=== PATIENT | female | born 1985 | race Two or more races ===

== ENCOUNTER → 2018-01-27 12:09 | Outpatient (CLI) | payer BC, SELFPAY ==
[2018-01-27 12:28] LABS: Basophils % 0.2 % (0.1-2.0); Eosinophils # 0.1 K/mm3 (0.0-0.4); Eosinophils % 0.9 % (0.1-12.0); Hematocrit 35.8 % (37.0-47.0); Hemoglobin 11.1 g/dL (12.2-16.2); Lymphocytes # 1.7 K/mm3 (0.7-4.5); Lymphocytes % 21.8 K/mm3 (10-50); Mean Corpuscular HGB Conc 31.1 g/dL (31.8-35.4); Mean Corpuscular Hemoglobin 26.1 pg (27.0-31.2); Mean Corpuscular Volume 83.8 fl (81-99); Mean Platelet Volume 8.2 fl (7.4-10.4); Monocytes # 0.4 K/mm3 (0.1-1.0); Neutrophils # 5.6 K/mm3 (1.8-7.8); Platelet Count 265 K/mm3 (142-424); Red Blood Count 4.27 M/mm3 (4.20-5.40); Red Cell Distribution Width 15.6 % (11.5-17.5); White Blood Count 7.8 K/mm3 (4.8-10.8)
[2018-01-28 05:14] LABS: HIV Screen 4th Generation wRfx Non Reactive (Non Reactive)
[2018-01-28 16:35] LABS: Hepatitis B Surface Antigen Negative (Negative); Hepatitis C Antibody 0.1 s/co ratio (0.0-0.9); Rapid Plasma Reagin Ab Titer Non Reactive (NonRea<1:1); Rubella Antibodies, IgG 9.19 index (Immune >0.99)
== END ==
PROVIDERS: PCP Nurse Practitioner Obstetrics & Gynecology; Visit Provider Obstetrics & Gynecology
DX: Z34.90 Encounter for supervision of normal pregnancy, unspecified, unspecified trimester (principal)
CPT/HCPCS: 36415; 85025; 86592; 86703; 86762; 86850; 87340; 87380; G0432

== ENCOUNTER → 2018-02-05 10:39 | Outpatient (CLI) | payer BC, SELFPAY ==
--- NOTE | 2018-02-05 10:44 | US_ITS ---
US OB transvaginal HISTORY: ITS.REASON: US OB TV for DATES ORDERING PHYSICIAN: Tequila Wallace MD PATIENT AGE: 32 years COMPARISON: FINDINGS: An intrauterine gestational sac is present with a pole with a crown-rump length of 03.32 cm correlating to gestational age of 10W2D. heart tones are present with an FHR of 164 bpm's. Yolk sac is noted. The amnion and chorion have not yet fused. Adnexa: 1.3 cm right ovarian cyst. IMPRESSION: Live intrauterine gestation at 10 weeks to days as described above. Estimated due date by ultrasound of 09/01/2018
== END ==
PROVIDERS: Visit Provider Obstetrics & Gynecology
DX: O26.841 Uterine size-date discrepancy, first trimester (principal)
CPT/HCPCS: 76830

== ENCOUNTER → 2018-04-13 13:53 | Outpatient (CLI) | payer OTHER, SELFPAY ==
--- NOTE | 2018-04-13 13:54 | US_ITS ---
US OB /maternal detail: INDICATION: ITS.REASON: US OB Complete ORDERING PHYSICIAN: Robe Moore MD PATIENT AGE: 32 years TECHNIQUE: ultrasound transabdominal scanning. COMPARISON: No previous relevant studies. FINDINGS: Single viable intrauterine gestation. Breech position. Placenta: Anterior placenta grade 1. There is average amount fluid. The cervix appears satisfactory. Closed and measuring 3 cm in length. Complete survey performed and was unremarkable on the submitted images as in PACS. No discrete anomalies identified on survey imaging by technologist. Active fetus. Three-vessel cord with satisfactory umbilical cord insertion. 4- chamber heart noted. Survey of brain & ventricles unremarkable. Face and neck survey unremarkable. Diaphragm and chest views unremarkable. Abdomen: Both kidneys noted and unremarkable. Stomach noted and satisfactory. Spine: Survey of the spine satisfactory with no anomalies identified nor imaged. Both arms and legs noted. Amniotic Fluid: Adequate. Maternal adnexa: No significant findings. Measurements: Average ultrasound age 19w5d. Gestational Age 19w6d. Estimated due date by ultrasound age 1109-02-2018. Estimated weight 321 grams. This is 49 percentile based on established due date BPD = 19w2d OFD = 20w3d HC = 19w2d AC = 20w1d FL = 20w0d Heart Rate = 143 bpm Cerebellum = 19w4d Humerus = 20w3d HC/AC is 1.12 (1.09-1.26). CI is 73% (70-86%). FL/BPD is 73%. FL/AC is 22%. IMPRESSION: Single live fetus in breech presentation with average ultrasound age of 19 weeks 5 days. The fetus is active with no obvious anomalies. Please see above for detail
== END ==
PROVIDERS: PCP Obstetrics & Gynecology; Visit Provider Nurse Practitioner Obstetrics & Gynecology
DX: Z36.0 Encounter for antenatal screening for chromosomal anomalies (principal)
CPT/HCPCS: 76805; 76811

== ENCOUNTER → 2018-07-30 15:17 | Outpatient (REF) | payer OTHER, SELFPAY | LOC: LAB 15:17 | PROVIDERS: Visit Provider Nurse Practitioner Obstetrics & Gynecology | DX: Z34.90 Encounter for supervision of normal pregnancy, unspecified, unspecified trimester (principal) | CPT/HCPCS: 86403 ==

== ENCOUNTER 2018-08-17 19:58 | Inpatient (IN) ==
[2018-08-17 21:59] LABS: Basophils % 0.4 % (0.1-2.0); Eosinophils # 0.1 K/mm3 (0.0-0.4); Eosinophils % 0.7 % (0.1-12.0); Hematocrit 29.8 % (37.0-47.0); Hemoglobin 9.3 g/dL (12.2-16.2); Lymphocytes # 1.4 K/mm3 (0.7-4.5); Lymphocytes % 18.6 K/mm3 (10-50); Mean Corpuscular HGB Conc 31.3 g/dL (31.8-35.4); Mean Corpuscular Hemoglobin 22.5 pg (27.0-31.2); Mean Corpuscular Volume 71.8 fl (81-99); Monocytes # 0.3 K/mm3 (0.1-1.0); Monocytes % 4.2 % (1.7-9.3); Neutrophils # 5.8 K/mm3 (1.8-7.8); Neutrophils % 76.1 % (37.0-80.0); Platelet Count 304 K/mm3 (142-424); Red Blood Count 4.15 M/mm3 (4.20-5.40); Red Cell Distribution Width 16.1 % (11.5-17.5); White Blood Count 7.6 K/mm3 (4.8-10.8)
[2018-08-17 22:21] LABS: Anion Gap 13.7 mEq/L (5-15); Calcium 8.4 mg/dL (8.5-10.1); Potassium 3.7 mmoL/L (3.5-5.1)
[2018-08-17 22:40] LABS: Microscopic, Urine URINE MICROSCOPIC (MICROSCOPIC)
[2018-08-17 22:41] LABS: Appearance,Urine CLEAR (Clear); Bilirubin,Urine Negative (Negative); Blood, Urine Negative (Negative); Color,Urine YELLOW (Yellow); Glucose,Urine (UA) Negative (Negative); Ketones,Urine 2+ (Negative); Leukocyte Esterase,Urine Negative (Negative); PH,Urine 6.5 (5.0-8.5); Protein,Urine Negative (Negative); Urobilinogen,Urine 0.2 EU/dl (0.2)
[2018-08-17 22:48] LABS: Bacteria,Urine 1+ /lpf; Mucus,Urine 1+ /lpf
--- NOTE | 2018-08-18 08:06 | Progress Note ---
Internal Medicine - PN: Subj *Date: 08/18/18 *Time: 08:03 Interval history: This 33-year old 4, para 3, Ab0 female admitted last evening with severe right upper quadrant pain at 38 weeks of gestation. She had been diagnosed with gallstone pancreatitis, and had been hospitalized at (recently released). He has been followed for her OB care by Dr. Wallace, who planned to induce her 2 days hence. She was having irregular contractions, and her cervix was 3 cm dilated (unchanged from previous exam). The baby looked good on the external monitor. Lab work included elevated amylase and lipase, but was otherwise normal. She was treated with intravenous Dilaudid, which relieved her pain. She began to have a run of contractions, which dissipated after a subcu dose of Brethine. At this time she remains stable. Dr. Wallace will assume care this morning. Exam Vital signs and Labs for Last 24 Hours: Temp Pulse Resp BP Pulse Ox 98.6 F 92 H 18 102/68 L 100 08/17/18 20:29 08/17/18 20:29 08/17/18 20:29 08/17/18 20:29 08/17/18 20:29 Laboratory Results - last 24 hr 08/17/18 20:10: Urine Color Yellow, Urine Appearance Clear, Urine pH 6.5, Ur Specific [place] 1.020, Urine Protein Negative, Urine Glucose (UA) Negative, Urine Ketones 2+, Urine Blood Negative, Urine Nitrate Negative, Urine Bilirubin Negative, Urine Urobilinogen 0.2, Ur Leukocyte Esterase Negative, Urine WBC 3-5, Ur Squamous Epith Cells 10-20, Urine Bacteria 1+, Urine Mucus 1+ 08/17/18 21:15: WBC 7.6, RBC 4.15 L, Hgb 9.3 L, Hct 29.8 L, MCV 71.8 L, MCH 22.5 L, MCHC 31.3 L, RDW 16.1, Plt Count 304, MPV 8.0, Neut % (Auto) 76.1, Lymph % (Auto) 18.6, [place] % (Auto) 4.2, Eos % (Auto) 0.7, Baso % (Auto) 0.4, Neut # (Auto) 5.8, Lymph # (Auto) 1.4, [place] # (Auto) 0.3, Eos # (Auto) 0.1, Baso # (Auto) 0.0 08/17/18 21:15: Sodium 136, Potassium 3.7, Chloride 105, Carbon Dioxide 21, Anion Gap 13.7, BUN 8, Creatinine 0.43 L, Estimated Creat Clear 246, Estimated GFR 171, Est GFR ( Amer) 207, Glucose 80, Calcium 8.4 L, Amylase 1554 H* 08/17/18 21:15: Lipase 6483 H I & O for Last 24 hours: Intake & Output 08/15/18 08/16/18 08/17/18 08/18/18 11:59 11:59 11:59 11:59 Weight 181 lb
--- NOTE | 2018-08-18 15:07 | Consult Report ---
*Admission Date: 08/17/18 *Chief complaint: ABDOMINAL PAIN *History of present illness: Patient is a very pleasant 4 para 33-year-old female, 38 weeks with intrauterine apparently she had had some issues with pancreatitis about 3 weeks ago and was hospitalized at [facility]. Reportedly this was felt to be biliary pancreatitis. The exact details of this were unknown. She did have some recurrent progressive right upper quadrant and epigastric pain. She was admitted yesterday evening. She underwent amylase and lipase which revealed appreciable elevation. Surgical consultation was obtained. Patient states that her pain has improved somewhat. She denies any nausea or vomiting. Review of Systems - Constitutional Denies anorexia - Eyes Denies loss of vision - ENT Denies abnormal hearing - *Cardiovascular Denies chest pain - *Respiratory Denies shortness of breath - *Gastrointestinal Reports abdominal pain - *Musculoskeletal Denies abnormal walking - *Neurologic Denies dizziness [facility] History Medical History: Denies:: Anxiety, Depression, Diabetes Mellitus Type 1, Hyperlipidemia, Hypertension, Migraine, MRSA Other Surgeries: No: Amputation: No Fractures: No - *Social History Smoking Status: Never smoker Alcohol Intake: never Substance Use Type: denies use - Psychiatric History Pschychiatric History:: Denies:: Anxiety, Depression *Family Hx:: Diabetes, Hypertension, Hyperlipidemia Para: 3 Meds Home Medications Medication Instructions Recorded Confirmed Type pediatric multivitamin no.49 2 tab PO .2 tablets at once tab 03/16/18 08/17/18 History chewable tablet famotidine 20 mg tablet 20 mg PO DAILY 07/30/18 08/17/18 History Omeprazole Magnesium [Prilosec Otc 20 mg PO DAILY 08/18/18 08/18/18 History 20mg Tab] Allergies Allergy/AdvReac Type Severity Reaction Status Date / Time No Known Allergies Allergy Verified 08/13/18 09:25 Exam Vital signs and Labs for Last 24 Hours: Temp Pulse Resp BP Pulse Ox 98.6 F 92 H 18 102/68 L 100 08/17/18 20:29 08/17/18 20:29 08/17/18 20:29 08/17/18 20:29 08/17/18 20:29 Laboratory Results - last 24 hr 08/17/18 20:10: Urine Color Yellow, Urine Appearance Clear, Urine pH 6.5, Ur Specific [place] 1.020, Urine Protein Negative, Urine Glucose (UA) Negative, Urine Ketones 2+, Urine Blood Negative, Urine Nitrate Negative, Urine Bilirubin Negative, Urine Urobilinogen 0.2, Ur Leukocyte Esterase Negative, Urine WBC 3-5, Ur Squamous Epith Cells 10-20, Urine Bacteria 1+, Urine Mucus 1+ 08/17/18 21:15: WBC 7.6, RBC 4.15 L, Hgb 9.3 L, Hct 29.8 L, MCV 71.8 L, MCH 22.5 L, MCHC 31.3 L, RDW 16.1, Plt Count 304, MPV 8.0, Neut % (Auto) 76.1, Lymph % (Auto) 18.6, [place] % (Auto) 4.2, Eos % (Auto) 0.7, Baso % (Auto) 0.4, Neut # (Auto) 5.8, Lymph # (Auto) 1.4, [place] # (Auto) 0.3, Eos # (Auto) 0.1, Baso # (Auto) 0.0 08/17/18 21:15: Sodium 136, Potassium 3.7, Chloride 105, Carbon Dioxide 21, Anion Gap 13.7, BUN 8, Creatinine 0.43 L, Estimated Creat Clear 246, Estimated GFR 171, Est GFR ( Amer) 207, Glucose 80, Calcium 8.4 L, Amylase 1554 H* 08/17/18 21:15: Lipase 6483 H I & O for Last 24 hours: Intake & Output 08/16/18 08/17/18 08/18/18 08/19/18 11:59 11:59 11:59 11:59 Weight 181 lb - Constitutional no acute distress - *Routine HEENT Exam Head: Present: normocephalic - *Routine Respiratory Exam Present: CTA bilaterally - *Routine Cardiovascular Exam Present: RRR - *Routine Abdominal Exam Present: soft Comments: Gravid. Soft. No guarding or rebound. Results - Labs 08/17/18 21:15 08/17/18 21:15 Laboratory Results - last 24 hr 08/17/18 20:10: Urine Color Yellow, Urine Appearance Clear, Urine pH 6.5, Ur Specific [place] 1.020, Urine Protein Negative, Urine Glucose (UA) Negative, Urine Ketones 2+, Urine Blood Negative, Urine Nitrate Negative, Urine Bilirubin Negative, Urine Urobilinogen 0.2, Ur Leukocyte Esterase Negative, Urine WBC 3-5, Ur Squamous Epith Cells 10-20, Urine Bacteria 1+, Urine Mucus 1+ 08/17/18 21:15: WBC 7.6, RBC 4.15 L, Hgb 9.3 L, Hct 29.8 L, MCV 71.8 L, MCH 22.5 L, MCHC 31.3 L, RDW 16.1, Plt Count 304, MPV 8.0, Neut % (Auto) 76.1, Lymph % (Auto) 18.6, [place] % (Auto) 4.2, Eos % (Auto) 0.7, Baso % (Auto) 0.4, Neut # (Auto) 5.8, Lymph # (Auto) 1.4, [place] # (Auto) 0.3, Eos # (Auto) 0.1, Baso # (Auto) 0.0 08/17/18 21:15: Sodium 136, Potassium 3.7, Chloride 105, Carbon Dioxide 21, Anion Gap 13.7, BUN 8, Creatinine 0.43 L, Estimated Creat Clear 246, Estimated GFR 171, Est GFR ( Amer) 207, Glucose 80, Calcium 8.4 L, Amylase 1554 H* 08/17/18 21:15: Lipase 6483 H Assessment and Plan - Assessment and plan all Dx Assessment and Plan for all problems:: Patient has essentially term with pancreatitis which is presumably biliary in origin. I will plan to recheck her pancreatic enzymes today. Also plan for evaluation of liver function tests to assess for the possibility of ongoing common duct stone. This seems less likely. Will obtain an ultrasound of her gallbladder tomorrow to assess the gallbladder and biliary tree. Patient is being augmented tomorrow with anticipated delivery. If she continues to show improvement in her biliary pancreatitis plan and may be for early interval cholecystectomy with cholangiogram during this hospitalization. However, the possibility of common bile duct stone should be noted and if ultrasound and liver function tests are suggestive of this she may require ERCP during this hospitalization.
[2018-08-18 16:03] LABS: Bilirubin,Total 0.3 mg/dL (0.2-1.0)
[2018-08-18 16:04] LABS: Albumin Level 2.3 gm/dL (3.4-5.0); Bilirubin,Direct 0.1 mg/dL (0.0-0.2); Bilirubin,Indirect 0.2 mg/dL (0.0-0.9); Total Protein,Serum 6.3 gm/dL (6.4-8.2)
--- NOTE | 2018-08-19 09:13 | History & Physical Report ---
OB - H&P: HPI Antepartum - History of Present Illness Chief complaint: IOL History of present illness: 38+ weeks scheduled IOL Patient admitted 36 hours prior to scheduled IOL with acute onset abdominal pain and known gallstone with pancreatitis. Inpatient surgery consult obtained to coordinate surgical management and establish care, and recommendations/plan noted on chart. Pitocin augmentation begun this am and nelly regularly. Currently having epidural placed for pain management during labor. Prior to admission with gallstone and pancreatitis, has been uncomplicated. [facility] History Medical History: Reports:: Gall Bladder Disease Denies:: Anxiety, Depression, Diabetes Mellitus Type 1, Hyperlipidemia, Hypertension, Migraine, MRSA Other Medical History: Reports: Other (pancreatitis) Other Surgeries: No: Amputation: No Fractures: No - *Social History Smoking Status: Never smoker Alcohol Intake: never Substance Use Type: denies use - Psychiatric History Pschychiatric History:: Denies:: Anxiety, Depression *Family Hx:: Diabetes, Hypertension, Hyperlipidemia Para: 3 Review of Systems - Review of Systems Review of systems:: pertinent systems reviewed and negative unless documented below - Eyes Denies change in vision - *Cardiovascular Denies chest pain, Denies chest pain at rest - *Respiratory Denies shortness of breath - *Gastrointestinal Reports abdominal pain, Denies vomiting - *Genitourinary Denies abnormal vaginal bleeding - *Musculoskeletal Reports back pain - Integumentary/Breasts Denies rash - *Neurologic Denies abnormal walking, Denies abnormal hearing, Denies dizziness, Denies loss of vision - Psychiatric Denies anxiety, Denies depression - Hematologic/Lymphatic Denies easy bleeding, Denies easy bruising Meds Home Medications Medication Instructions Recorded Confirmed Type pediatric multivitamin no.49 2 tab PO .2 tablets at once tab 03/16/18 08/17/18 History chewable tablet famotidine 20 mg tablet 20 mg PO DAILY 07/30/18 08/17/18 History Omeprazole Magnesium [Prilosec Otc 20 mg PO DAILY 08/18/18 08/18/18 History 20mg Tab] Allergies Allergy/AdvReac Type Severity Reaction Status Date / Time No Known Allergies Allergy Verified 08/13/18 09:25 OB - H&P: Exam - Physical Exam Vital signs: Temp Pulse Resp BP Pulse Ox 98.2 F 75 16 118/79 99 08/19/18 07:20 08/19/18 07:20 08/19/18 07:20 08/19/18 07:20 08/19/18 07:20 - Constitutional no acute distress - Routine HEENT Exam ENT: Present: mucous membranes moist - Routine Respiratory Exam Present: CTA bilaterally. Absent: respiratory distress - Routine Cardiovascular Exam Present: RRR - Routine Abdominal Exam Present: soft. Absent: tenderness, distended - Routine Exam External: Absent: erythema, tenderness, lesions - Routine Extremities Exam Present: edema (1+) - Routine Skin Exam Present: dry, warm. Absent: rash - Routine Neurological Exam Present: alert, oriented X3. Absent: altered mental status - Routine Psychiatric Exam Present: normal affect. Absent: depressed, anxious - Detailed Labor and Delivery Exam Dilation (cm): 3 Effacement (%): 50 Cervix position: anterior station: 0 Membranes: intact Baseline heart rate: 140 monitor accelerations: Present monitor decelerations: None computer terminal operator variability: Moderate (11-25) Contraction frequency (min): 4 OB - Results - Labs Labs: Liver Function 08/18/18 Range/Units 15:30 Total Bilirubin 0.3 (0.2-1.0) mg/dL Direct Bilirubin 0.1 (0.0-0.2) mg/dL AST 31 (15-37) U/L ALT 34 (12-78) U/L Alkaline Phosphatase 236 H (46-116) U/L Albumin 2.3 L (3.4-5.0) gm/dL OB - A/P Antepartum (1) 38 weeks gestation of Current visit: Yes Status: Acute (2) Abdominal pain affecting Current visit: No Status: Acute (3) Gallstones Current visit: No Status: Acute (4) Pancreatitis, acute Problem details: lipase 890 AST 42 ALT 35 Plt 257 Current visit: No Status: Acute (5) Anemia affecting Problem details: hgb 8.9 Current visit: No Status: Acute - Additional Plan Additional Information:: Admission for IOL Pitocin augmentation per protocol Epidural for pain management during labor Continuous monitoring Anticipate Appreciate gen surgery consult Repeat labs and GB ultrasound per gen surgery plan; further management TBD by results
--- NOTE | 2018-08-19 09:21 | Progress Note ---
[facility] Anesthesia Checklist - Patient Identification Patient Identification: Arm Band, Verbal (Name & ) - Structural Data Admitted From: Inpatient Planned Operative Procedure/s: Labor Epidural Consent for Planned Operative Procedure(s) Verified: Yes Verified Documents: Surgical Consent, History and Physical - Chart Verification Results Verified: CBC, BMP - Additional verifications Patient : Yes Anesthesia Reactions: No - Airway Assessment C-Spine Mobility Assessed: Yes TMJ Mobility Assessed: Yes Dentition: Good Dentition - Neurological Assessment Level of Consciousness: Awake Hx Seizures: No Numbness or tingling in extremities: No - Anesthesia Plan Anesthesia Risk discussed: Yes Anesthesia Plan: Verified ASA Class: II Anesthesia Type: Epidural [facility] History I have reviewed the patient's past medical history: Yes Medical History: Reports:: Gall Bladder Disease, Gastroesophageal Reflux Disease(GERD) ( induced) Denies:: Anxiety, Depression, Diabetes Mellitus Type 1, Hyperlipidemia, Hypertension, Migraine, MRSA Other Medical History: Reports: Other (pancreatitis) Other Surgeries: No: Amputation: No Fractures: No - *Social History Smoking Status: Never smoker Alcohol Intake: never Substance Use Type: denies use - Psychiatric History Pschychiatric History:: Denies:: Anxiety, Depression *Family Hx:: Diabetes, Hypertension, Hyperlipidemia Para: 3
--- NOTE | 2018-08-19 11:53 | Progress Note ---
Subjective Patient reports: no new complaints Exam Vital signs and Labs for Last 24 Hours: Temp Pulse Resp BP Pulse Ox 98.2 F 75 16 118/79 99 08/19/18 07:20 08/19/18 07:20 08/19/18 07:20 08/19/18 07:20 08/19/18 07:20 Laboratory Results - last 24 hr 08/18/18 15:30: Total Bilirubin 0.3, Direct Bilirubin 0.1, Indirect Bilirubin 0.2, AST 31, ALT 34, Alkaline Phosphatase 236 H, Total Protein 6.3 L, Albumin 2.3 L, Amylase 292 H D 08/18/18 15:30: Lipase 646 H 08/19/18 06:00: Blood Type O Positive, Antibody Screen Negative I & O for Last 24 hours: Intake & Output 08/16/18 08/17/18 08/18/18 08/19/18 11:59 11:59 11:59 11:59 Weight 181 lb - Constitutional no acute distress - *Routine Abdominal Exam Present: soft Progress Note: A&P (1) 38 weeks gestation of Status: Acute Current Visit: Yes (2) Abdominal pain affecting Status: Acute Current Visit: No (3) Gallstones Status: Acute Current Visit: No (4) Pancreatitis, acute Problem details: lipase 890 AST 42 ALT 35 Plt 257 Status: Acute Current Visit: No (5) Anemia affecting Problem details: hgb 8.9 Status: Acute Current Visit: No Assessment and Plan for All Diagnoses:: Laboratory studies yesterday revealed improvement of pancreatic enzymes. Gallbladder ultrasound reveals gallstones with no common bile duct dilatation. This is all suggestive of possible transient biliary obstruction resulting in pancreatitis. At this point would advocate early cholecystectomy with intraoperative cholangiogram either later during this hospitalization or as an early outpatient follow-up.
--- NOTE | 2018-08-19 13:49 | Procedure Note ---
- Delivery Note Delivery Date:: 08/19/18 Delivery Time:: 12:15 Anesthesia Type: Epidural Was labor medically induced?: Yes Induction method: per pitocin protocol Gestational age (weeks): 38 delivered prior to 39 weeks?: Yes Gender: Female at 1 minute: 8 at 5 minutes: 9 Delivery Procedure:: Spontaneous vaginal delivery of vigorous liveborn male over intact perineum. Apgars 8 & 9 Delivery uncomplicated, with no shoulder dystocia noted; nuchal cord x 1 reduced on the field Thin meconium noted at time of delivery; SROM occurred immediately prior to delivery and meconium was unknown prior to ROM Infant placed immediately on maternal abdomen for nursing assessment & TONY immediately after umbilical cord clamped/cut, but was then taken immediately to warmer for peds assessment due to meconium stained amniotic fluid Placenta spontaneously expressed and examined; noted to be complete/intact Vulva, vagina, and cervix inspected; no lacerations noted EBL: 300cc All sponge/needle/instrument counts correct at conclusion of procedure Disposition: Mom/baby stable to recovery in LDRP Placental Delivery Description: Spontaneous
[2018-08-19 14:52] LABS: Microscopic, Urine URINE MICROSCOPIC (MICROSCOPIC)
[2018-08-19 15:04] LABS: Appearance,Urine CLEAR (Clear); Bilirubin,Urine Negative (Negative); Blood, Urine Negative (Negative); Color,Urine YELLOW (Yellow); Glucose,Urine (UA) Negative (Negative); Ketones,Urine Negative (Negative); Leukocyte Esterase,Urine TRACE (Negative); Protein,Urine Negative (Negative); Specific Gravity, Urine 1.015 (1.005-1.030)
[2018-08-19 15:58] LABS: Squamous Epithelial Cell,Urine Occasional #/hpf (0-5); WBC,Urine Occasional #/hpf (0-3)
[2018-08-20 05:54] LABS: Hematocrit 25.2 % (37.0-47.0)
[2018-08-20 06:08] LABS: Hemoglobin 7.9 g/dL (12.2-16.2)
--- NOTE | 2018-08-20 08:21 | Progress Note ---
Subjective Narrative: Patient had successful delivery yesterday. Exam Vital signs and Labs for Last 24 Hours: Temp Pulse Resp BP Pulse Ox 98.2 F 75 16 118/79 99 08/19/18 07:20 08/19/18 07:20 08/19/18 07:20 08/19/18 07:20 08/19/18 07:20 Laboratory Results - last 24 hr 08/19/18 09:19: Urine Color Yellow, Urine Appearance Clear, Urine pH 8.0, Ur Specific [place] 1.015, Urine Protein Negative, Urine Glucose (UA) Negative, Urine Ketones Negative, Urine Blood Negative, Urine Nitrate Negative, Urine Bilirubin Negative, Urine Urobilinogen 1.0, Ur Leukocyte Esterase Trace, Urine RBC None, Urine WBC Occasional, Ur Squamous Epith Cells Occasional, Urine Bacteria None 08/20/18 05:36: Hgb 7.9 L*, Hct 25.2 L I & O for Last 24 hours: Intake & Output 08/17/18 08/18/18 08/19/18 08/20/18 11:59 11:59 11:59 11:59 Weight 181 lb - Constitutional no acute distress - *Routine Abdominal Exam Present: soft Progress Note: A&P (1) 38 weeks gestation of Status: Acute Current Visit: Yes (2) Abdominal pain affecting Status: Acute Current Visit: No (3) Gallstones Status: Acute Current Visit: No (4) Pancreatitis, acute Problem details: lipase 890 AST 42 ALT 35 Plt 257 Status: Acute Current Visit: No (5) Anemia affecting Problem details: hgb 8.9 Status: Acute Current Visit: No Assessment and Plan for All Diagnoses:: Biliary pancreatitis appears to be resolving. Given the physiologic changes from recent delivery likely recommend discharge with early outpatient follow-up next week to make arrangements for cholecystectomy with cholangiogram.
--- NOTE | 2018-08-20 15:58 | Progress Note ---
Internal Medicine - PN: Subj *Date: 08/20/18 *Time: 15:55 Interval history: PPD #1 Ambulating and voiding without difficulty Lochia appropriate and uterine fundus remains firm Asymptomatic with acute on chronic anemia--Hgb prior to admission 8.9 with drop to 7.9 PPD #1 Denies any chest pain, SOB or dizziness with ambulation/rest infant No S/Sx depression Abd/back pain related to gallstones stable/improved with PPI and H2 chris Significant drop in amylase and lipase from time of admission General surgery input reviewed, with tentative plan for surgical management next week; will coordinate necessary details prior to discharge home tomorrow Exam Vital signs and Labs for Last 24 Hours: Temp Pulse Resp BP Pulse Ox 98.2 F 81 18 106/51 L 100 08/20/18 08:50 08/20/18 08:50 08/20/18 08:50 08/20/18 08:50 08/20/18 08:50 Laboratory Results - last 24 hr 08/19/18 09:19: Urine RBC None, Urine WBC Occasional, Ur Squamous Epith Cells Occasional, Urine Bacteria None 08/20/18 05:36: Hgb 7.9 L*, Hct 25.2 L I & O for Last 24 hours: Intake & Output 08/18/18 08/19/18 08/20/18 08/21/18 11:59 11:59 11:59 11:59 Weight 181 lb - Constitutional no acute distress - *Routine HEENT Exam ENT: Present: mucous membranes moist - *Routine Respiratory Exam Present: CTA bilaterally. Absent: respiratory distress - *Routine Cardiovascular Exam Present: RRR - *Routine Abdominal Exam Present: soft. Absent: tenderness, distended, guarding - *Routine Exam Comments: fundus firm at umbilicus - *Routine Extremities Exam Present: edema (1+) - *Routine Skin Exam Present: dry, warm. Absent: rash - *Routine Neurological Exam Present: alert, oriented X3. Absent: altered mental status - Routine Psychiatric Exam Absent: depressed, agitated Assessment and Plan (1) 38 weeks gestation of Current visit: Yes Status: Acute Category: Medical Code(s): Z3A.38 - 38 weeks gestation of (2) Vaginal delivery Current visit: Yes Status: Acute Category: Medical Code(s): O80 - Encounter for full-term uncomplicated delivery (3) Abdominal pain affecting Current visit: No Status: Acute Category: Medical Code(s): O26.899 - Other specified related conditions, unspecified trimester; R10.9 - Unspecified abdominal pain (4) Gallstones Current visit: No Status: Acute Category: Medical Code(s): K80.20 - Calculus of gallbladder without cholecystitis without obstruction (5) Pancreatitis, acute Problem details: lipase 890 AST 42 ALT 35 Plt 257 Current visit: No Status: Acute Category: Medical Code(s): K85.90 - Acute pancreatitis without necrosis or infection, unspecified (6) Anemia affecting Problem details: hgb 8.9 Current visit: No Status: Acute Category: Medical Code(s): O99.019 - Anemia complicating , unspecified trimester (7) Anemia associated with acute blood loss Problem details: Hgb 7.9 PPD#1 Current visit: Yes Status: Acute Category: Medical Code(s): D62 - Acute posthemorrhagic anemia - Assessment and plan all Dx Assessment and Plan for all problems:: Routine care Acute on chronic anemia; asymptomatic Drop in Hgb appropriate with vaginal delivery but will repeat H/H in am prior to discharge Continue PNV and FeSO4 supplementation Plan for surgical management re: gallstones in short term, per gen surgery Anticipate discharge tomorrow
[2018-08-21 10:27] VITALS: BP 110/59
--- NOTE | 2018-08-21 11:18 | Discharge Summary ---
General - General Admission date:: 08/18/18 Discharge date: 08/21/18 HPI HPI: Admitted at 38+ wks with abd/back pain related to known gallstones and pancreatitis IOL begun and normal course uncomplicated; pancreatic enzymes resolved following delivery Inpatient general surgery consult obtained and f/u plan made for outpatient management of gallstones Discharged home on PPD#2 Hospital Course Hospital Course: as documented in HPI Rhogam Administration: Not Indicated Objective Vital signs: Temp Pulse Resp BP Pulse Ox 98.3 F 78 18 110/59 L 100 08/21/18 08:00 08/21/18 08:00 08/21/18 08:00 08/21/18 08:00 08/20/18 08:50 no acute distress - *Routine Respiratory Exam Absent: respiratory distress - *Routine Cardiovascular Exam Present: RRR - *Routine Abdominal Exam Present: soft. Absent: tenderness, distended - *Routine Skin Exam Absent: rash - Routine Psychiatric Exam Present: normal affect. Absent: depressed, anxious DS: Diagnosis - Discharge Diagnosis (1) 38 weeks gestation of Status: Acute (2) Vaginal delivery Status: Acute (3) Abdominal pain affecting Status: Acute (4) Gallstones Status: Acute (5) Pancreatitis, acute Status: Acute Problem details: lipase 890 AST 42 ALT 35 Plt 257 (6) Anemia affecting Status: Acute Problem details: hgb 8.9 (7) Anemia associated with acute blood loss Status: Acute Problem details: Hgb 7.9 PPD#1 Discharge Plan - Patient Discharge Instructions ACTIVITY: Continue current activity DIET: regular diet - Follow up Plan Disposition: Home, Self-Group Home Medications: Home Medications Medication Instructions Recorded Confirmed Type pediatric multivitamin no.49 2 tab PO DAILY tab 03/16/18 08/19/18 History chewable tablet famotidine 20 mg tablet 20 mg PO DAILY 07/30/18 08/17/18 History Omeprazole Magnesium [Prilosec Otc 20 mg PO DAILY 08/18/18 08/18/18 History 20mg Tab] Prescriptions/Medication Reconciliation: New Oxycodone HCl [OxyIR 5mg tablet] 5 mg PO Q4HP PRN tablet PRN Reason: Moderate Pain Ibuprofen [Motrin 400mg tablet] 800 mg PO Q6HP PRN tablet PRN Reason: Mild To Moderate Pain Continue famotidine 20 mg tablet 20 mg PO DAILY pediatric multivitamin no.49 chewable tablet 2 tab PO DAILY tab Omeprazole Magnesium [Prilosec Otc 20mg Tab] 20 mg PO DAILY
== END 2018-08-21 13:00 | disposition home or self-care (01) ==
LOC: OBOUT 19:58 → OB 19:58
PROVIDERS: ADMIT Obstetrics & Gynecology; ATTEND Obstetrics & Gynecology

== ENCOUNTER → 2018-08-28 12:40 | Outpatient (CLI) | payer OTHER, SELFPAY ==
[2018-08-28 14:29] LABS: Basophils % 0.3 % (0.1-2.0); Eosinophils # 0.1 K/mm3 (0.0-0.4); Eosinophils % 1.2 % (0.1-12.0); Hemoglobin 9.2 g/dL (12.2-16.2); Lymphocytes # 1.4 K/mm3 (0.7-4.5); Lymphocytes % 19.9 K/mm3 (10-50); Mean Corpuscular HGB Conc 29.8 g/dL (31.8-35.4); Mean Corpuscular Hemoglobin 21.9 pg (27.0-31.2); Mean Corpuscular Volume 73.4 fl (81-99); Mean Platelet Volume 7.2 fl (7.4-10.4); Monocytes # 0.3 K/mm3 (0.1-1.0); Monocytes % 3.7 % (1.7-9.3); Neutrophils # 5.4 K/mm3 (1.8-7.8); Platelet Count 388 K/mm3 (142-424); Red Blood Count 4.22 M/mm3 (4.20-5.40); Red Cell Distribution Width 16.5 % (11.5-17.5); White Blood Count 7.2 K/mm3 (4.8-10.8)
[2018-08-28 14:58] LABS: Alanine Aminotransferase 54 U/L (12-78); Albumin/Globulin Ratio 0.8 (1.1-1.8); Alkaline Phosphatase 206 U/L (46-116); Amylase 78 U/L (25-125); Anion Gap 17.1 mEq/L (5-15); Aspartate Amino Transferase 22 U/L (15-37); Bilirubin,Total 0.2 mg/dL (0.2-1.0); Blood Urea Nitrogen 11 mg/dL (7-18); Calcium 8.6 mg/dL (8.5-10.1); Carbon Dioxide 22 mmol/L (21.0-32.0); Chloride 106 mmol/L (98-107); Creatinine,Serum 0.53 mg/dL (0.55-1.02); Estimated Glomerular Filt Rate 135 ml/min (>60); GFR (African American) 163 ML/MIN (>60); Glucose 88 mg/dL (74-106); Lipase 195 u/L (73-393); Potassium 4.1 mmoL/L (3.5-5.1); Sodium 141 mmol/L (136-145)
== END ==
PROVIDERS: Visit Provider Surgery
DX: K85.10 Biliary acute pancreatitis without necrosis or infection (principal)
CPT/HCPCS: 36415; 80053; 82150; 83690; 85025